=== PATIENT | male | born 1935 | race Caucasian/White ===

== ENCOUNTER 2019-12-19 18:39 | Inpatient (IN) | payer MEDICARE, MEDICAID ==
[~2019-12-19] VITALS: Ht 162.6 cm; Wt 73.0 kg
[2019-12-19 18:40] VITALS: BP_SYST 93
[2019-12-19] MEDS ORDERED: ALBUTEROL SULFATE 0.083% 2.5 MG/3 ML VIAL.NEB INH ONE (19:00)
[2019-12-19] MEDS ORDERED: IPRATROPIUM BROM 0.5 MG/2.5 ML VIAL.NEB (ATROVENT) INH ONE (19:00)
[2019-12-19] MEDS ORDERED: methylPREDNISolone SOD SUCC/PF 62.5 MG/ML VIAL IVP ONE (19:00)
[2019-12-19] MEDS ORDERED: CLOPIDOGREL BISULFATE 75 MG TABLET PO ONE (19:15)
[2019-12-19] MEDS ORDERED: ASPIRIN 81 MG TAB.CHEW PO ONE (19:15)
[2019-12-19] MEDS ORDERED: cefTRIAXone 1 GM IVPB PREMIX 50 ML IV ONE ×3 (19:15→20:10)
[2019-12-19] MEDS ORDERED: NITROGLYCERIN 0.4 MG TAB.SUBL SL ONE (19:15)
[2019-12-19 19:25] LABS: BLOOD, URINE 2+ (NEGATIVE); CLARITY/URINE SL CLOUDY (CLEAR); COLOR,URINE YELLOW (YELLOW); GLUCOSE,URINE NEGATIVE (NEGATIVE); KETONES,URINE NEGATIVE (NEGATIVE); LEUKOCYTE ESTERASE ,URINE 3+ (NEGATIVE); NITRITE, URINE NEGATIVE (NEGATIVE); PROTEIN URINE TRACE (NEGATIVE)
[2019-12-19 19:39] LABS: BILIRUBIN,URINE NEGATIVE (NEGATIVE)
[2019-12-19 19:40] LABS: BACTERIA,URINE MANY /HPF (None Seen); WBC,URINE >100 /HPF (0-3)
[2019-12-19 19:41] LABS: MUCUS,URINE None Seen /LPF (None Seen)
[2019-12-19] MEDS ORDERED: AZITHROMYCIN 500 MG in NS 250 ML IV ONE (20:00)
[2019-12-19] MEDS ORDERED: CLOPIDOGREL BISULFATE 75 MG TABLET ONE (20:11)
[2019-12-19] MEDS ORDERED: ASPIRIN 81 MG TAB.CHEW ONE (20:11)
[2019-12-19 20:27] LABS: BASOPHILS % (AUTO) 0.4 % (0.0-2.0); EOSINOPHILS # (AUTO) 0.1 K/uL (0.0-0.4); EOSINOPHILS % (AUTO) 0.7 % (0.0-4.0); HEMATOCRIT 29.8 % (36-54); HEMOGLOBIN 9.4 g/dL (14.0-18.0); LYMPHOCYTES # (AUTO) 1.6 K/uL (1.0-5.5); LYMPHOCYTES % (AUTO) 12.4 % (20.5-51.5); MEAN CORPUSCULAR HEMOGLOBIN 25 pg (27-31); MEAN CORPUSCULAR HGB CONC 31 % (32-36); MEAN CORPUSCULAR VOLUME 79 fL (79.0-98.0); MONOCYTES % (AUTO) 7.6 % (1.7-9.3); NEUTROPHILS # (AUTO) 10.2 K/uL (1.8-7.7); NEUTROPHILS % (AUTO) 78.9 % (40.0-70.0); PLATELET COUNT (AUTO) 389 K/uL (130-430); RED BLOOD CELL COUNT(AUTO) 3.79 MIL/uL (4.2-6.2); RED CELL DISTRIBUTION WIDTH 18.1 % (9.0-15.0); WHITE BLOOD COUNT (AUTO) 12.9 K/uL (4.8-10.8)
[2019-12-19 20:28] LABS: INR 1.1 (0.80-1.20); PROTHROMBIN TIME 11.1 SECS (9.5-12.5)
[2019-12-19 20:33] LABS: CHLORIDE 91 mmol/L (98-107); POTASSIUM 3.3 mmol/L (3.5-5.1); SODIUM SERUM 127 mmol/L (136-145)
[2019-12-19 20:38] LABS: ANION GAP 9 (5-15); CALCIUM 8.4 mg/dL (8.4-11.0); CREATININE 1.23 mg/dL (0.55-1.30); GLUCOSE 208 mg/dL (70-99); UREA NITROGEN, BLOOD 64 mg/dL (8-21)
[2019-12-19 20:44] LABS: ALANINE AMINOTRANSFERASE 21 U/L (12-78); ALBUMIN 1.3 g/dL (3.4-4.8); AMYLASE 33 U/L (0-100); ASPARTATE AMINOTRANSFERASE 40 U/L (10-37); LIPASE 111 U/L (73-393); TOTAL BILIRUBIN 0.7 mg/dL (0.0-1.0)
[2019-12-19] MEDS ORDERED: VANCOMYCIN HCL 1,000 MG in NS 250 ML IV ONE (21:00)
[2019-12-19] MEDS ORDERED: PIPERACILLIN/TAZO 3.375 GM in NS 50 ML IV ONE (21:00)
[2019-12-19] MEDS ORDERED: AZITHROMYCIN 500 MG/VIAL (ZITHROMAX) IV ONE (21:03)
[2019-12-19 21:23] LABS: CKMB RELATIVE INDEX 0.4 (0.0-2.9); CREATINE KINASE MB 1.5 ng/mL (0-3.6)
[2019-12-19 21:42] LABS: STREPTOCOCCUS A SCREEN (RAPID) NEGATIVE (NEGATIVE)
[2019-12-19 21:50] LABS: INFLUENZA A&B ANTIGEN SCREEN NEGATIVE FOR A & B (NEGATIVE)
[2019-12-19] MEDS ORDERED: PIPERACILLIN/TAZOBACTAM 3.375 GM/VIAL (ZOSYN) IV ONE (21:56)
[2019-12-19] MEDS ORDERED: VANCOMYCIN HCL 1000 MG/VIAL IV ONE (22:18)
[2019-12-19] MEDS ORDERED: ACET325T53 PO (22:23)
[2019-12-19] MEDS ORDERED: CYAN250014 PO (22:23)
[2019-12-19] MEDS ORDERED: TAMS-11 PO (22:23)
[2019-12-19] MEDS ORDERED: ZINC220T4 PO (22:23)
[2019-12-19] MEDS ORDERED: AMIN30LI2 PO (22:23)
[2019-12-19] MEDS ORDERED: INSU100I26 SQ (22:23)
[2019-12-19] MEDS ORDERED: SENN8.6T19 PO (22:23)
[2019-12-19] MEDS ORDERED: METO25TA3 PO (22:23)
[2019-12-19] MEDS ORDERED: FURO-149 PO (22:23)
[2019-12-19] MEDS ORDERED: POLY17PO4 PO (22:23)
[2019-12-19] MEDS ORDERED: FERR-69 PO (22:23)
[2019-12-19] MEDS ORDERED: ISOS30TA9 PO (22:23)
[2019-12-19] MEDS ORDERED: ALLO300T2 PO (22:23)
[2019-12-19] MEDS ORDERED: HYDR-4272 PO (22:23)
[2019-12-19] MEDS ORDERED: BENA5TAB5 PO (22:23)
[2019-12-19] MEDS ORDERED: DOCU-144 PO (22:23)
[2019-12-19] MEDS ORDERED: MORP15TA60 PO (22:23)
[2019-12-19] MEDS ORDERED: SSNOVOLOG SUBCUT (22:23)
[2019-12-19] MEDS ORDERED: MULT-1089 PO (22:23)
[2019-12-19] MEDS ORDERED: PIOG30TA70 PO (22:23)
[2019-12-19 23:30] VITALS: BP_SYST 112
[2019-12-20] VITALS (7 sets, daily range): BP systolic 112–131
[2019-12-20] MEDS ORDERED: INSULIN LISPRO SLIDING SCALE 100 UNITS/ML VIAL (humaLOG) SUBCUT PRN (01:30)
[2019-12-20] MEDS ORDERED: IPRATROPIUM/ALBUTEROL SULFATE 3 ML AMPUL.NEB (DUONEB) INH PRN (01:30)
[2019-12-20] MEDS ORDERED: POTASSIUM CHLORIDE 20 MEQ TAB.PRT.SR PO ONE (01:30)
[2019-12-20] MEDS: IPRATROPIUM/ALBUTEROL SULFATE 3 ML AMPUL.NEB (DUONEB) INH SCH ×4 (03:14→20:37)
[2019-12-20 07:59] LABS: BASOPHILS % (AUTO) 0.4 % (0.0-2.0); EOSINOPHILS % (AUTO) 0.1 % (0.0-4.0); HEMATOCRIT 30.1 % (36-54); HEMOGLOBIN 9.6 g/dL (14.0-18.0); LYMPHOCYTES # (AUTO) 0.5 K/uL (1.0-5.5); LYMPHOCYTES % (AUTO) 5.7 % (20.5-51.5); MEAN CORPUSCULAR HEMOGLOBIN 25 pg (27-31); MEAN CORPUSCULAR HGB CONC 32 % (32-36); MEAN CORPUSCULAR VOLUME 78 fL (79.0-98.0); MONOCYTES # (AUTO) 0.1 K/uL (0.0-1.0); MONOCYTES % (AUTO) 1.4 % (1.7-9.3); NEUTROPHILS # (AUTO) 8.8 K/uL (1.8-7.7); NEUTROPHILS % (AUTO) 92.4 % (40.0-70.0); PLATELET COUNT (AUTO) 415 K/uL (130-430); RED BLOOD CELL COUNT(AUTO) 3.86 MIL/uL (4.2-6.2); RED CELL DISTRIBUTION WIDTH 18.3 % (9.0-15.0); WHITE BLOOD COUNT (AUTO) 9.5 K/uL (4.8-10.8)
[2019-12-20] MEDS ORDERED: ONDANSETRON HCL 4 MG/2 ML VIAL IVP PRN (08:15)
[2019-12-20] MEDS ORDERED: HYDROcodone/ACETAMIN 5-325 MG TAB (NORCO/ VICODIN) PO PRN (08:15)
[2019-12-20] MEDS ORDERED: ALBUTEROL SULFATE 0.083% 2.5 MG/3 ML VIAL.NEB INH PRN (08:15)
[2019-12-20] MEDS ORDERED: ACETAMINOPHEN 325 MG TABLET PO PRN (08:15)
[2019-12-20 08:20] LABS: ALANINE AMINOTRANSFERASE 23 U/L (12-78); ALBUMIN 1.3 g/dL (3.4-4.8); ANION GAP 13 (5-15); ASPARTATE AMINOTRANSFERASE 37 U/L (10-37); CALCIUM 8.4 mg/dL (8.4-11.0); CHLORIDE 92 mmol/L (98-107); CREATININE 1.01 mg/dL (0.55-1.30); GLUCOSE 337 mg/dL (70-99); POTASSIUM 4.6 mmol/L (3.5-5.1); SODIUM SERUM 131 mmol/L (136-145); TOTAL BILIRUBIN 0.9 mg/dL (0.0-1.0); UREA NITROGEN, BLOOD 57 mg/dL (8-21)
[2019-12-20] MEDS ORDERED: DEXTROSE 50%-WATER 50 ML DISP.SYRIN IVP PRN (09:00)
[2019-12-20] MEDS ORDERED: GLUCOSE 15 GM GEL (in 37.5 GM TUBE) PO PRN (09:00)
[2019-12-20] MEDS ORDERED: D5W 1,000 ML IV PRN (09:00)
[2019-12-20] MEDS ORDERED: cefTRIAXone 1 GM IVPB PREMIX 50 ML IV SCH (09:00)
[2019-12-20] MEDS: AZITHROMYCIN 500 MG in NS 250 ML IV SCH (11:09)
[2019-12-20] MEDS: INSULIN REGULAR, HUMAN 100 UNITS/ML, 10 ML VIAL (humuLIN R) SUBCUT PRN ×3 (11:14→20:31)
[2019-12-20] MEDS: FUROSEMIDE 40 MG TABLET PO SCH (13:14)
[2019-12-20] MEDS: ISOSORBIDE DINITRATE 10 MG TABLET (ISORDIL) PO SCH ×2 (13:14→20:41)
[2019-12-20] MEDS: DOCUSATE SODIUM 100 MG CAPSULE PO SCH ×2 (13:14→20:40)
[2019-12-20] MEDS: POLYETHYLENE GLYCOL 3350, 17 GM/ POWD.PACK PO SCH (13:15)
[2019-12-20] MEDS: LISINOPRIL 5 MG TABLET PO SCH ×2 (13:15→20:41)
[2019-12-20] MEDS: SENNOSIDES 8.6 MG TABLET PO SCH ×2 (13:15→20:41)
[2019-12-20] MEDS: METOPROLOL SUCCINATE 25 MG TAB.SR.24H (TOPROL XL) PO SCH (13:15)
[2019-12-20] MEDS: ALLOPURINOL 300 MG TABLET (ZYLOPRIM) PO SCH (13:16)
[2019-12-20] MEDS ORDERED: MENTHOL/ZINC OXIDE 113 GM OINT. TP PRN (16:30)
[2019-12-20] MEDS: BALSAM PERU/CASTOR OIL 60 GM OINT...G. TP SCH (16:30)
[2019-12-20] MEDS: PIPERACILLIN/TAZO 2.25G/DEX-IS 50 ML IV SCH ×2 (17:19→23:20)
[2019-12-20] MEDS: TAMSULOSIN HCL 0.4 MG CAP PO SCH (20:41)
[2019-12-20] MEDS ORDERED: VANCOMYCIN HCL 1 GM/NS PREMIX 250 ML IV ONE (21:30)
[2019-12-20] MEDS ORDERED: VANCOMYCIN HCL 1000 MG/VIAL IV ONE (22:39)
[2019-12-21 00:02] VITALS: BP_SYST 103
[2019-12-21] MEDS: IPRATROPIUM/ALBUTEROL SULFATE 3 ML AMPUL.NEB (DUONEB) INH SCH ×7 (00:13→23:15)
[2019-12-21] MEDS: PIPERACILLIN/TAZO 2.25G/DEX-IS 50 ML IV SCH ×4 (05:56→23:24)
[2019-12-21 05:59] LABS: BASOPHILS % (AUTO) 0.2 % (0.0-2.0); HEMATOCRIT 25.8 % (36-54); HEMOGLOBIN 8.3 g/dL (14.0-18.0); LYMPHOCYTES # (AUTO) 0.4 K/uL (1.0-5.5); MEAN CORPUSCULAR HEMOGLOBIN 25 pg (27-31); MEAN CORPUSCULAR HGB CONC 32 % (32-36); MEAN CORPUSCULAR VOLUME 79 fL (79.0-98.0); MONOCYTES # (AUTO) 0.5 K/uL (0.0-1.0); MONOCYTES % (AUTO) 5.6 % (1.7-9.3); NEUTROPHILS # (AUTO) 8.1 K/uL (1.8-7.7); NEUTROPHILS % (AUTO) 89.2 % (40.0-70.0); PLATELET COUNT (AUTO) 368 K/uL (130-430); RED BLOOD CELL COUNT(AUTO) 3.29 MIL/uL (4.2-6.2); RED CELL DISTRIBUTION WIDTH 17.8 % (9.0-15.0); WHITE BLOOD COUNT (AUTO) 9.1 K/uL (4.8-10.8)
[2019-12-21] MEDS: INSULIN REGULAR, HUMAN 100 UNITS/ML, 10 ML VIAL (humuLIN R) SUBCUT PRN ×4 (06:02→21:27)
[2019-12-21 06:04] LABS: ALANINE AMINOTRANSFERASE 21 U/L (12-78); ALBUMIN 1.4 g/dL (3.4-4.8); ANION GAP 8 (5-15); ASPARTATE AMINOTRANSFERASE 20 U/L (10-37); CALCIUM 8.6 mg/dL (8.4-11.0); CHLORIDE 97 mmol/L (98-107); CREATININE 0.88 mg/dL (0.55-1.30); GLUCOSE 299 mg/dL (70-99); SODIUM SERUM 134 mmol/L (136-145); TOTAL BILIRUBIN 0.7 mg/dL (0.0-1.0); UREA NITROGEN, BLOOD 49 mg/dL (8-21)
[2019-12-21 08:00] VITALS: BP_SYST 144
[2019-12-21] MEDS: LISINOPRIL 5 MG TABLET PO SCH ×2 (09:00→21:00)
[2019-12-21] MEDS: ALLOPURINOL 300 MG TABLET (ZYLOPRIM) PO SCH (09:00)
[2019-12-21] MEDS: SENNOSIDES 8.6 MG TABLET PO SCH ×2 (09:00→21:00)
[2019-12-21] MEDS: DOCUSATE SODIUM 100 MG CAPSULE PO SCH ×2 (09:00→21:00)
[2019-12-21] MEDS: METOPROLOL SUCCINATE 25 MG TAB.SR.24H (TOPROL XL) PO SCH (09:00)
[2019-12-21] MEDS: ISOSORBIDE DINITRATE 10 MG TABLET (ISORDIL) PO SCH ×2 (09:00→21:00)
[2019-12-21] MEDS: POLYETHYLENE GLYCOL 3350, 17 GM/ POWD.PACK PO SCH (09:00)
[2019-12-21] MEDS: FUROSEMIDE 40 MG TABLET PO SCH (09:00)
[2019-12-21] MEDS: AZITHROMYCIN 500 MG in NS 250 ML IV SCH (10:54)
[2019-12-21 12:00] VITALS: BP_SYST 134
[2019-12-21] MEDS ORDERED: POTASSIUM CHLORIDE 20 MEQ TAB.PRT.SR PO ONE (12:30)
[2019-12-21] MEDS: BALSAM PERU/CASTOR OIL 60 GM OINT...G. TP SCH (16:53)
[2019-12-21 20:00] VITALS: BP_SYST 126
[2019-12-21] MEDS: TAMSULOSIN HCL 0.4 MG CAP PO SCH (21:00)
[2019-12-21] MEDS: MUPIROCIN 2% TOPICAL OINTMENT 22 GM NS SCH (21:01)
[2019-12-21] MEDS: NACL 0.9% 1,000 ML IV SCH (21:02)
[2019-12-22] VITALS: BP_SYST 133
[2019-12-22] MEDS: IPRATROPIUM/ALBUTEROL SULFATE 3 ML AMPUL.NEB (DUONEB) INH SCH ×6 (03:00→23:37)
[2019-12-22] MEDS: PIPERACILLIN/TAZO 2.25G/DEX-IS 50 ML IV SCH ×2 (05:00→12:13)
[2019-12-22 08:00] VITALS: BP_SYST 137
[2019-12-22] MEDS: DOCUSATE SODIUM 100 MG CAPSULE PO SCH ×2 (09:00→21:00)
[2019-12-22] MEDS: SENNOSIDES 8.6 MG TABLET PO SCH ×2 (09:00→21:00)
[2019-12-22] MEDS: LISINOPRIL 5 MG TABLET PO SCH ×2 (09:00→21:00)
[2019-12-22] MEDS: FUROSEMIDE 40 MG TABLET PO SCH (09:00)
[2019-12-22] MEDS: ISOSORBIDE DINITRATE 10 MG TABLET (ISORDIL) PO SCH ×2 (09:00→21:00)
[2019-12-22] MEDS: ALLOPURINOL 300 MG TABLET (ZYLOPRIM) PO SCH (09:00)
[2019-12-22] MEDS: METOPROLOL SUCCINATE 25 MG TAB.SR.24H (TOPROL XL) PO SCH (09:00)
[2019-12-22] MEDS: POLYETHYLENE GLYCOL 3350, 17 GM/ POWD.PACK PO SCH (09:00)
[2019-12-22] MEDS: AZITHROMYCIN 500 MG in NS 250 ML IV SCH (09:48)
[2019-12-22] MEDS: BALSAM PERU/CASTOR OIL 60 GM OINT...G. TP SCH (12:04)
[2019-12-22] MEDS: MUPIROCIN 2% TOPICAL OINTMENT 22 GM NS SCH ×2 (12:04→21:41)
[2019-12-22] MEDS: INSULIN REGULAR, HUMAN 100 UNITS/ML, 10 ML VIAL (humuLIN R) SUBCUT PRN ×2 (12:13→18:06)
[2019-12-22 16:00] VITALS: BP_SYST 146
[2019-12-22] MEDS: NACL 0.9% 1,000 ML IV SCH (16:32)
[2019-12-22] MEDS: cefTRIAXone 1 GM in D5W 50 ML IV SCH (16:32)
[2019-12-22] MEDS: TAMSULOSIN HCL 0.4 MG CAP PO SCH (21:00)
[2019-12-22 21:43] VITALS: BP_SYST 150
[2019-12-23] VITALS (9 sets, daily range): BP systolic 117–163
[2019-12-23] MEDS: IPRATROPIUM/ALBUTEROL SULFATE 3 ML AMPUL.NEB (DUONEB) INH SCH ×5 (03:36→20:27)
[2019-12-23] MEDS: NACL 0.9% 1,000 ML IV SCH ×2 (05:50→22:30)
[2019-12-23 06:43] LABS: ANION GAP 5 (5-15); CALCIUM 9.1 mg/dL (8.4-11.0); CHLORIDE 107 mmol/L (98-107); CREATININE 0.61 mg/dL (0.55-1.30); GLUCOSE 189 mg/dL (70-99); SODIUM SERUM 141 mmol/L (136-145); UREA NITROGEN, BLOOD 18 mg/dL (8-21)
[2019-12-23] MEDS: INSULIN REGULAR, HUMAN 100 UNITS/ML, 10 ML VIAL (humuLIN R) SUBCUT PRN ×5 (06:44→20:55)
[2019-12-23 06:55] LABS: BASOPHILS % (AUTO) 0.2 % (0.0-2.0); EOSINOPHILS # (AUTO) 0.1 K/uL (0.0-0.4); EOSINOPHILS % (AUTO) 1.4 % (0.0-4.0); HEMATOCRIT 32.1 % (36-54); LYMPHOCYTES % (AUTO) 9.6 % (20.5-51.5); MEAN CORPUSCULAR HEMOGLOBIN 26 pg (27-31); MEAN CORPUSCULAR HGB CONC 31 % (32-36); MEAN CORPUSCULAR VOLUME 82 fL (79.0-98.0); MONOCYTES # (AUTO) 0.6 K/uL (0.0-1.0); NEUTROPHILS # (AUTO) 8.6 K/uL (1.8-7.7); NEUTROPHILS % (AUTO) 82.8 % (40.0-70.0); PLATELET COUNT (AUTO) 392 K/uL (130-430); RED BLOOD CELL COUNT(AUTO) 3.91 MIL/uL (4.2-6.2); RED CELL DISTRIBUTION WIDTH 18.6 % (9.0-15.0); WHITE BLOOD COUNT (AUTO) 10.4 K/uL (4.8-10.8)
[2019-12-23] MEDS: SENNOSIDES 8.6 MG TABLET PO SCH ×2 (09:00→21:00)
[2019-12-23] MEDS: ALLOPURINOL 300 MG TABLET (ZYLOPRIM) PO SCH (09:00)
[2019-12-23] MEDS: ISOSORBIDE DINITRATE 10 MG TABLET (ISORDIL) PO SCH ×2 (09:00→21:00)
[2019-12-23] MEDS: LISINOPRIL 5 MG TABLET PO SCH ×2 (09:00→21:00)
[2019-12-23] MEDS: POLYETHYLENE GLYCOL 3350, 17 GM/ POWD.PACK PO SCH (09:00)
[2019-12-23] MEDS: DOCUSATE SODIUM 100 MG CAPSULE PO SCH ×2 (09:00→21:00)
[2019-12-23] MEDS: METOPROLOL SUCCINATE 25 MG TAB.SR.24H (TOPROL XL) PO SCH (09:00)
[2019-12-23] MEDS: FUROSEMIDE 40 MG TABLET PO SCH (09:00)
[2019-12-23] MEDS ORDERED: HALOPERIDOL LACTATE 5 MG/ML VIAL IVP ONE (09:15)
[2019-12-23] MEDS: BALSAM PERU/CASTOR OIL 60 GM OINT...G. TP SCH (11:25)
[2019-12-23] MEDS: MUPIROCIN 2% TOPICAL OINTMENT 22 GM NS SCH ×2 (11:25→20:51)
[2019-12-23] MEDS: cefTRIAXone 1 GM in D5W 50 ML IV SCH (13:37)
[2019-12-23] MEDS: VANCOMYCIN HCL 1,250 MG in NS 250 ML IV SCH (14:59)
[2019-12-23] MEDS ORDERED: FUROSEMIDE 40 MG/4 ML VIAL IVP ONE (17:15)
[2019-12-23] MEDS: TAMSULOSIN HCL 0.4 MG CAP PO SCH (21:00)
[2019-12-24 00:42] VITALS: BP_SYST 100
[2019-12-24] MEDS: IPRATROPIUM/ALBUTEROL SULFATE 3 ML AMPUL.NEB (DUONEB) INH SCH ×7 (02:16→23:31)
[2019-12-24] MEDS: NACL 0.9% 1,000 ML IV SCH ×2 (04:36→21:44)
[2019-12-24] MEDS: INSULIN REGULAR, HUMAN 100 UNITS/ML, 10 ML VIAL (humuLIN R) SUBCUT PRN ×4 (06:43→21:47)
[2019-12-24 07:13] LABS: BASOPHILS % (AUTO) 0.3 % (0.0-2.0); EOSINOPHILS # (AUTO) 0.1 K/uL (0.0-0.4); EOSINOPHILS % (AUTO) 1.4 % (0.0-4.0); HEMATOCRIT 31.4 % (36-54); HEMOGLOBIN 9.9 g/dL (14.0-18.0); LYMPHOCYTES # (AUTO) 1.2 K/uL (1.0-5.5); LYMPHOCYTES % (AUTO) 13.6 % (20.5-51.5); MEAN CORPUSCULAR HEMOGLOBIN 25 pg (27-31); MEAN CORPUSCULAR HGB CONC 32 % (32-36); MEAN CORPUSCULAR VOLUME 80 fL (79.0-98.0); MONOCYTES # (AUTO) 0.5 K/uL (0.0-1.0); NEUTROPHILS # (AUTO) 6.7 K/uL (1.8-7.7); NEUTROPHILS % (AUTO) 78.7 % (40.0-70.0); PLATELET COUNT (AUTO) 363 K/uL (130-430); RED BLOOD CELL COUNT(AUTO) 3.92 MIL/uL (4.2-6.2); RED CELL DISTRIBUTION WIDTH 18.6 % (9.0-15.0); WHITE BLOOD COUNT (AUTO) 8.5 K/uL (4.8-10.8)
[2019-12-24 07:56] LABS: ALANINE AMINOTRANSFERASE 21 U/L (12-78); ALBUMIN 1.4 g/dL (3.4-4.8); ANION GAP 8 (5-15); ASPARTATE AMINOTRANSFERASE 23 U/L (10-37); CALCIUM 8.5 mg/dL (8.4-11.0); CHLORIDE 111 mmol/L (98-107); CREATININE 0.71 mg/dL (0.55-1.30); GLUCOSE 178 mg/dL (70-99); SODIUM SERUM 152 mmol/L (136-145); UREA NITROGEN, BLOOD 17 mg/dL (8-21)
[2019-12-24 08:17] LABS: POTASSIUM 2.4 mmol/L (3.5-5.1)
[2019-12-24] MEDS ORDERED: POTASSIUM CHLORIDE 20 MEQ TAB.PRT.SR PO ONE (09:15)
[2019-12-24] MEDS ORDERED: POTASSIUM CHLORIDE 40 MEQ in NS 250 ML IV ONE (09:15)
[2019-12-24] MEDS: METOPROLOL SUCCINATE 25 MG TAB.SR.24H (TOPROL XL) PO SCH (09:22)
[2019-12-24 09:23] VITALS: BP_SYST 120
[2019-12-24] MEDS: ALLOPURINOL 300 MG TABLET (ZYLOPRIM) PO SCH (09:23)
[2019-12-24] MEDS: DOCUSATE SODIUM 100 MG CAPSULE PO SCH ×2 (09:23→21:00)
[2019-12-24] MEDS: LISINOPRIL 5 MG TABLET PO SCH ×2 (09:23→21:00)
[2019-12-24] MEDS: FUROSEMIDE 40 MG/4 ML VIAL IVP SCH (09:29)
[2019-12-24] MEDS: MUPIROCIN 2% TOPICAL OINTMENT 22 GM NS SCH ×2 (09:30→21:47)
[2019-12-24] MEDS: BALSAM PERU/CASTOR OIL 60 GM OINT...G. TP SCH (09:30)
[2019-12-24] MEDS: ISOSORBIDE DINITRATE 10 MG TABLET (ISORDIL) PO SCH ×2 (09:44→21:00)
[2019-12-24] MEDS: POLYETHYLENE GLYCOL 3350, 17 GM/ POWD.PACK PO SCH (09:45)
[2019-12-24] MEDS: SENNOSIDES 8.6 MG TABLET PO SCH ×2 (09:57→21:00)
[2019-12-24 12:19] VITALS: BP_SYST 127
[2019-12-24] MEDS: VANCOMYCIN HCL 1,250 MG in NS 250 ML IV SCH (13:13)
[2019-12-24] MEDS: cefTRIAXone 1 GM in D5W 50 ML IV SCH (13:13)
[2019-12-24 16:40] VITALS: BP_SYST 103
[2019-12-24 20:00] VITALS: BP_SYST 114
[2019-12-24] MEDS: TAMSULOSIN HCL 0.4 MG CAP PO SCH (21:00)
[2019-12-25 00:30] VITALS: BP_SYST 113
[2019-12-25] MEDS: IPRATROPIUM/ALBUTEROL SULFATE 3 ML AMPUL.NEB (DUONEB) INH SCH ×5 (04:10→21:11)
[2019-12-25] MEDS: INSULIN REGULAR, HUMAN 100 UNITS/ML, 10 ML VIAL (humuLIN R) SUBCUT PRN ×4 (06:30→23:05)
[2019-12-25 07:23] LABS: INR 1.2 (0.80-1.20); PROTHROMBIN TIME 12.1 SECS (9.5-12.5)
[2019-12-25] MEDS: DOCUSATE SODIUM 100 MG CAPSULE PO SCH ×2 (07:33→21:00)
[2019-12-25] MEDS: ISOSORBIDE DINITRATE 10 MG TABLET (ISORDIL) PO SCH ×2 (07:33→21:00)
[2019-12-25] MEDS: POLYETHYLENE GLYCOL 3350, 17 GM/ POWD.PACK PO SCH (07:33)
[2019-12-25] MEDS: LISINOPRIL 5 MG TABLET PO SCH ×2 (07:34→21:00)
[2019-12-25] MEDS: METOPROLOL SUCCINATE 25 MG TAB.SR.24H (TOPROL XL) PO SCH (07:34)
[2019-12-25] MEDS: ALLOPURINOL 300 MG TABLET (ZYLOPRIM) PO SCH (07:34)
[2019-12-25] MEDS: SENNOSIDES 8.6 MG TABLET PO SCH ×2 (07:34→21:00)
[2019-12-25] MEDS: BALSAM PERU/CASTOR OIL 60 GM OINT...G. TP SCH (07:34)
[2019-12-25 08:00] VITALS: BP_SYST 122
[2019-12-25] MEDS: MUPIROCIN 2% TOPICAL OINTMENT 22 GM NS SCH ×2 (08:21→22:55)
[2019-12-25] MEDS: FUROSEMIDE 40 MG/4 ML VIAL IVP SCH (08:21)
[2019-12-25 10:25] LABS: ANION GAP 9 (5-15); CALCIUM 8.2 mg/dL (8.4-11.0); CHLORIDE 116 mmol/L (98-107); CREATININE 0.96 mg/dL (0.55-1.30); GLUCOSE 226 mg/dL (70-99); POTASSIUM 3.4 mmol/L (3.5-5.1); SODIUM SERUM 156 mmol/L (136-145); UREA NITROGEN, BLOOD 29 mg/dL (8-21)
[2019-12-25 10:26] LABS: BASOPHILS # (AUTO) 0.1 K/uL (0.0-0.2); BASOPHILS % (AUTO) 0.7 % (0.0-2.0); EOSINOPHILS # (AUTO) 0.1 K/uL (0.0-0.4); EOSINOPHILS % (AUTO) 1.4 % (0.0-4.0); HEMOGLOBIN 9.7 g/dL (14.0-18.0); LYMPHOCYTES # (AUTO) 1.1 K/uL (1.0-5.5); LYMPHOCYTES % (AUTO) 11.2 % (20.5-51.5); MEAN CORPUSCULAR HEMOGLOBIN 25 pg (27-31); MEAN CORPUSCULAR HGB CONC 30 % (32-36); MEAN CORPUSCULAR VOLUME 82 fL (79.0-98.0); MONOCYTES # (AUTO) 0.4 K/uL (0.0-1.0); MONOCYTES % (AUTO) 4.5 % (1.7-9.3); NEUTROPHILS # (AUTO) 7.8 K/uL (1.8-7.7); NEUTROPHILS % (AUTO) 82.2 % (40.0-70.0); PLATELET COUNT (AUTO) 364 K/uL (130-430); RED BLOOD CELL COUNT(AUTO) 3.91 MIL/uL (4.2-6.2); RED CELL DISTRIBUTION WIDTH 19.4 % (9.0-15.0); WHITE BLOOD COUNT (AUTO) 9.4 K/uL (4.8-10.8)
[2019-12-25] MEDS: D5W 1,000 ML IV SCH ×2 (11:09→23:02)
[2019-12-25] MEDS: VANCOMYCIN HCL 1,250 MG in NS 250 ML IV SCH (12:02)
[2019-12-25] MEDS: cefTRIAXone 1 GM in D5W 50 ML IV SCH (12:02)
[2019-12-25 12:34] VITALS: BP_SYST 146
[2019-12-25 16:05] VITALS: BP_SYST 158
[2019-12-25 20:00] VITALS: BP_SYST 134
[2019-12-25] MEDS: TAMSULOSIN HCL 0.4 MG CAP PO SCH (21:00)
[2019-12-26] VITALS (7 sets, daily range): BP systolic 102–145
[2019-12-26] MEDS: IPRATROPIUM/ALBUTEROL SULFATE 3 ML AMPUL.NEB (DUONEB) INH SCH ×7 (01:18→22:34)
[2019-12-26] MEDS: INSULIN REGULAR, HUMAN 100 UNITS/ML, 10 ML VIAL (humuLIN R) SUBCUT PRN ×4 (05:38→21:24)
[2019-12-26 06:40] LABS: BASOPHILS # (AUTO) 0.1 K/uL (0.0-0.2); EOSINOPHILS # (AUTO) 0.1 K/uL (0.0-0.4); EOSINOPHILS % (AUTO) 1.6 % (0.0-4.0); HEMATOCRIT 32.8 % (36-54); HEMOGLOBIN 10.1 g/dL (14.0-18.0); LYMPHOCYTES # (AUTO) 0.8 K/uL (1.0-5.5); LYMPHOCYTES % (AUTO) 9.7 % (20.5-51.5); MEAN CORPUSCULAR HEMOGLOBIN 25 pg (27-31); MEAN CORPUSCULAR HGB CONC 31 % (32-36); MEAN CORPUSCULAR VOLUME 81 fL (79.0-98.0); MONOCYTES # (AUTO) 0.5 K/uL (0.0-1.0); MONOCYTES % (AUTO) 6.3 % (1.7-9.3); NEUTROPHILS % (AUTO) 81.4 % (40.0-70.0); PLATELET COUNT (AUTO) 283 K/uL (130-430); RED BLOOD CELL COUNT(AUTO) 4.06 MIL/uL (4.2-6.2); RED CELL DISTRIBUTION WIDTH 19.5 % (9.0-15.0); WHITE BLOOD COUNT (AUTO) 8.5 K/uL (4.8-10.8)
[2019-12-26 06:44] LABS: ALANINE AMINOTRANSFERASE 17 U/L (12-78); ALBUMIN 1.4 g/dL (3.4-4.8); ANION GAP 7 (5-15); ASPARTATE AMINOTRANSFERASE 20 U/L (10-37); CALCIUM 8.3 mg/dL (8.4-11.0); CHLORIDE 116 mmol/L (98-107); CREATININE 0.97 mg/dL (0.55-1.30); GLUCOSE 207 mg/dL (70-99); SODIUM SERUM 155 mmol/L (136-145); TOTAL BILIRUBIN 0.9 mg/dL (0.0-1.0); UREA NITROGEN, BLOOD 23 mg/dL (8-21)
[2019-12-26 08:12] LABS: POTASSIUM 2.6 mmol/L (3.5-5.1)
[2019-12-26] MEDS ORDERED: POTASSIUM CHLORIDE 40 MEQ in D5W 250 ML IV ONE (08:15)
[2019-12-26] MEDS: LISINOPRIL 5 MG TABLET PO SCH ×2 (09:00→21:00)
[2019-12-26] MEDS: ISOSORBIDE DINITRATE 10 MG TABLET (ISORDIL) PO SCH ×2 (09:00→21:00)
[2019-12-26] MEDS: ALLOPURINOL 300 MG TABLET (ZYLOPRIM) PO SCH (09:00)
[2019-12-26] MEDS: POLYETHYLENE GLYCOL 3350, 17 GM/ POWD.PACK PO SCH (09:00)
[2019-12-26] MEDS: SENNOSIDES 8.6 MG TABLET PO SCH ×2 (09:00→21:00)
[2019-12-26] MEDS: DOCUSATE SODIUM 100 MG CAPSULE PO SCH ×2 (09:00→21:00)
[2019-12-26] MEDS: METOPROLOL SUCCINATE 25 MG TAB.SR.24H (TOPROL XL) PO SCH (09:00)
[2019-12-26] MEDS: BALSAM PERU/CASTOR OIL 60 GM OINT...G. TP SCH (09:08)
[2019-12-26] MEDS: MUPIROCIN 2% TOPICAL OINTMENT 22 GM NS SCH (09:08)
[2019-12-26] MEDS: cefTRIAXone 1 GM in D5W 50 ML IV SCH (12:07)
[2019-12-26] MEDS: VANCOMYCIN HCL 1,250 MG in NS 250 ML IV SCH (12:08)
[2019-12-26] MEDS ORDERED: POTASSIUM CHLORIDE 20 MEQ in NS 250 ML IV ONE (13:00)
[2019-12-26] MEDS: D5W 1,000 ML IV SCH (15:23)
[2019-12-26] MEDS: TAMSULOSIN HCL 0.4 MG CAP PO SCH (21:00)
[2019-12-27] MEDS: D5W 1,000 ML IV SCH ×3 (01:03→22:27)
[2019-12-27] MEDS: IPRATROPIUM/ALBUTEROL SULFATE 3 ML AMPUL.NEB (DUONEB) INH SCH ×6 (03:23→23:00)
[2019-12-27] MEDS: INSULIN REGULAR, HUMAN 100 UNITS/ML, 10 ML VIAL (humuLIN R) SUBCUT PRN ×3 (06:35→22:29)
[2019-12-27 06:47] LABS: BASOPHILS # (AUTO) 0.1 K/uL (0.0-0.2); BASOPHILS % (AUTO) 1.3 % (0.0-2.0); EOSINOPHILS # (AUTO) 0.2 K/uL (0.0-0.4); EOSINOPHILS % (AUTO) 2.7 % (0.0-4.0); HEMATOCRIT 33.3 % (36-54); HEMOGLOBIN 10.1 g/dL (14.0-18.0); LYMPHOCYTES # (AUTO) 0.9 K/uL (1.0-5.5); MEAN CORPUSCULAR HEMOGLOBIN 25 pg (27-31); MEAN CORPUSCULAR HGB CONC 30 % (32-36); MEAN CORPUSCULAR VOLUME 81 fL (79.0-98.0); MONOCYTES # (AUTO) 0.4 K/uL (0.0-1.0); MONOCYTES % (AUTO) 5.9 % (1.7-9.3); NEUTROPHILS # (AUTO) 5.5 K/uL (1.8-7.7); NEUTROPHILS % (AUTO) 77.1 % (40.0-70.0); PLATELET COUNT (AUTO) 276 K/uL (130-430); RED CELL DISTRIBUTION WIDTH 19.7 % (9.0-15.0); WHITE BLOOD COUNT (AUTO) 7.1 K/uL (4.8-10.8)
[2019-12-27 07:26] LABS: ALANINE AMINOTRANSFERASE 18 U/L (12-78); ALBUMIN 1.4 g/dL (3.4-4.8); ANION GAP 9 (5-15); ASPARTATE AMINOTRANSFERASE 27 U/L (10-37); CALCIUM 7.5 mg/dL (8.4-11.0); CHLORIDE 114 mmol/L (98-107); GLUCOSE 201 mg/dL (70-99); POTASSIUM 3.1 mmol/L (3.5-5.1); SODIUM SERUM 152 mmol/L (136-145); UREA NITROGEN, BLOOD 19 mg/dL (8-21)
[2019-12-27 08:22] VITALS: BP_SYST 157
[2019-12-27] MEDS: POLYETHYLENE GLYCOL 3350, 17 GM/ POWD.PACK PO SCH (09:00)
[2019-12-27] MEDS ORDERED: MEPERIDINE HCL/PF 100 MG/ML AMP ONE (09:13)
[2019-12-27] MEDS ORDERED: MIDAZOLAM HCL 5 MG/5 ML VIAL ONE (09:13)
[2019-12-27] MEDS ORDERED: SIMETHICONE 40 MG/0.6 ML ML ONE (09:13)
[2019-12-27] MEDS: BALSAM PERU/CASTOR OIL 60 GM OINT...G. TP SCH (12:28)
[2019-12-27] MEDS: cefTRIAXone 1 GM in D5W 50 ML IV SCH (12:33)
[2019-12-27] MEDS: VANCOMYCIN HCL 1,250 MG in NS 250 ML IV SCH (12:34)
[2019-12-27] MEDS: DOCUSATE SODIUM 100 MG CAPSULE PO SCH ×2 (14:58→21:00)
[2019-12-27] MEDS: SENNOSIDES 8.6 MG TABLET PO SCH ×2 (14:59→22:21)
[2019-12-27] MEDS: LISINOPRIL 5 MG TABLET PO SCH ×2 (14:59→22:21)
[2019-12-27] MEDS: ISOSORBIDE DINITRATE 10 MG TABLET (ISORDIL) PO SCH ×2 (14:59→22:20)
[2019-12-27] MEDS: METOPROLOL SUCCINATE 25 MG TAB.SR.24H (TOPROL XL) PO SCH (15:00)
[2019-12-27] MEDS: ALLOPURINOL 300 MG TABLET (ZYLOPRIM) PO SCH (15:00)
[2019-12-27 15:41] VITALS: BP_SYST 118
[2019-12-27 20:00] VITALS: BP_SYST 136
[2019-12-27] MEDS: TAMSULOSIN HCL 0.4 MG CAP PO SCH (21:00)
[2019-12-28 00:20] VITALS: BP_SYST 102
[2019-12-28] MEDS: IPRATROPIUM/ALBUTEROL SULFATE 3 ML AMPUL.NEB (DUONEB) INH SCH ×3 (03:43→11:09)
[2019-12-28] MEDS: D5W 1,000 ML IV SCH (06:25)
[2019-12-28] MEDS: INSULIN REGULAR, HUMAN 100 UNITS/ML, 10 ML VIAL (humuLIN R) SUBCUT PRN ×2 (06:25→13:37)
[2019-12-28 07:50] LABS: BASOPHILS # (AUTO) 0.1 K/uL (0.0-0.2); BASOPHILS % (AUTO) 0.7 % (0.0-2.0); EOSINOPHILS # (AUTO) 0.1 K/uL (0.0-0.4); EOSINOPHILS % (AUTO) 0.9 % (0.0-4.0); HEMATOCRIT 29.9 % (36-54); HEMOGLOBIN 9.3 g/dL (14.0-18.0); LYMPHOCYTES # (AUTO) 0.7 K/uL (1.0-5.5); LYMPHOCYTES % (AUTO) 8.1 % (20.5-51.5); MEAN CORPUSCULAR HEMOGLOBIN 25 pg (27-31); MEAN CORPUSCULAR HGB CONC 31 % (32-36); MEAN CORPUSCULAR VOLUME 81 fL (79.0-98.0); MONOCYTES # (AUTO) 0.6 K/uL (0.0-1.0); MONOCYTES % (AUTO) 6.4 % (1.7-9.3); NEUTROPHILS # (AUTO) 7.3 K/uL (1.8-7.7); NEUTROPHILS % (AUTO) 83.9 % (40.0-70.0); PLATELET COUNT (AUTO) 226 K/uL (130-430); RED BLOOD CELL COUNT(AUTO) 3.71 MIL/uL (4.2-6.2); RED CELL DISTRIBUTION WIDTH 19.7 % (9.0-15.0); WHITE BLOOD COUNT (AUTO) 8.8 K/uL (4.8-10.8)
[2019-12-28 07:57] LABS: ALANINE AMINOTRANSFERASE 20 U/L (12-78); ALBUMIN 1.3 g/dL (3.4-4.8); ANION GAP 6 (5-15); ASPARTATE AMINOTRANSFERASE 31 U/L (10-37); CHLORIDE 108 mmol/L (98-107); CREATININE 1.26 mg/dL (0.55-1.30); GLUCOSE 317 mg/dL (70-99); POTASSIUM 3.1 mmol/L (3.5-5.1); SODIUM SERUM 143 mmol/L (136-145); TOTAL BILIRUBIN 1.3 mg/dL (0.0-1.0); UREA NITROGEN, BLOOD 24 mg/dL (8-21)
[2019-12-28 08:07] LABS: CALCIUM 6.9 mg/dL (8.4-11.0)
[2019-12-28 08:21] VITALS: BP_SYST 113
[2019-12-28] MEDS: POLYETHYLENE GLYCOL 3350, 17 GM/ POWD.PACK PO SCH (08:24)
[2019-12-28] MEDS: ALLOPURINOL 300 MG TABLET (ZYLOPRIM) PO SCH (08:24)
[2019-12-28] MEDS: METOPROLOL SUCCINATE 25 MG TAB.SR.24H (TOPROL XL) PO SCH (08:25)
[2019-12-28] MEDS: ISOSORBIDE DINITRATE 10 MG TABLET (ISORDIL) PO SCH (08:25)
[2019-12-28] MEDS: LISINOPRIL 5 MG TABLET PO SCH (08:26)
[2019-12-28] MEDS: DOCUSATE SODIUM 100 MG CAPSULE PO SCH (08:26)
[2019-12-28] MEDS: BALSAM PERU/CASTOR OIL 60 GM OINT...G. TP SCH (08:27)
[2019-12-28] MEDS: SENNOSIDES 8.6 MG TABLET PO SCH (08:28)
[2019-12-28 12:00] VITALS: BP_SYST 119
[2019-12-28] MEDS: VANCOMYCIN HCL 1,250 MG in NS 250 ML IV SCH (13:15)
[2019-12-28] MEDS ORDERED: CEFEPIME 1 GM in NS 50 ML IV SCH (14:00)
[2019-12-28] MEDS ORDERED: POTASSIUM CHLORIDE 40 MEQ in D5W 250 ML IV ONE (17:15)
== END 2019-12-28 15:20 | DRG 871 ==
LOC: SED 18:39 → STU 22:26 → SMU 12-23 20:22
PROVIDERS: ADMIT Internal Medicine Hospice and Palliative Medicine; ATTEND Internal Medicine Hospice and Palliative Medicine
PROC: 0DH63UZ Insertion of Feeding Device into Stomach, Percutaneous Approach (ICD-10-PCS; principal; 2019-12-27 09:30)
DX: A41.02 Sepsis due to Methicillin resistant Staphylococcus aureus (principal); J15.6 Pneumonia due to other Gram-negative bacteria; J96.01 Acute respiratory failure with hypoxia; J69.0 Pneumonitis due to inhalation of food and vomit; N39.0 Urinary tract infection, site not specified; J44.1 Chronic obstructive pulmonary disease with (acute) exacerbation; E87.0 Hyperosmolality and hypernatremia; E87.2 Acidosis; J44.0 Chronic obstructive pulmonary disease with (acute) lower respiratory infection; E46 Unspecified protein-calorie malnutrition; E11.9 Type 2 diabetes mellitus without complications; E78.5 Hyperlipidemia, unspecified; E86.9 Volume depletion, unspecified; F03.90 Unspecified dementia, unspecified severity, without behavioral disturbance, psychotic disturbance, mood disturbance, and anxiety; I11.0 Hypertensive heart disease with heart failure; I50.9 Heart failure, unspecified; E87.6 Hypokalemia; R13.10 Dysphagia, unspecified; R62.7 Adult failure to thrive; Z83.3 Family history of diabetes mellitus; Z68.27 Body mass index [BMI] 27.0-27.9, adult
CPT/HCPCS: 36415; 36600; 43246; 43760; 71045; 71250-TC; 80048; 80053; 80202-TC; 81000-TC; 82150-TC; 82550-TC; 82553-TC; 82803-TC; 82962; 83605; 83690-TC; 83880; 84484; 85025; 85610-TC; 85730-TC; 86403; 86710; 87040-TC; 87081; 87086; 87186-TC; 93005; 93306; 94640; 94760; 96365; 96367; 96375; 99291; G0378; J0456; J0692; J0696; J1815; J1940; J2175; J2250; J2543; J2930; J3370; J3480; J7030; J7050; J7060; J7613; U0002